=== PATIENT | female | born 1945 | race African-American/Black ===

== ENCOUNTER 2017-11-27 05:28 | Day surgery (SDC) | payer OTHER ==
[~2017-11-27] VITALS: Ht 155 cm; Wt 69.0 kg
--- NOTE | ~2017-11-27 | EKG ---
[address] [address] ELECTROCARDIOGRAM REPORT Name: XAVIER NEWTON Room #: 150-2 [facility].#: [id number] Admission: 11/27/17 Attend Phys: Rajesh Jett Discharge: Date of : 43 Report #: [id number] THIS REPORT FOR: //name// [facility] Test Date: 2017-11-27 Test Time: 08:16:09 Pat Name: XAVIER NEWTON Department: Room: 150 2 Gender: F Residential Glazier: FRANK : 1945 Requested By: Rajesh Espana Order Number: [id number] MD: Owen Wasserman Measurements Intervals [place] Rate: 95 P: 85 NH: 125 QRS: 43 QRSD: 89 T: QT: 413 QTc: 520 Interpretive Statements Sinus rhythm Abnrm T, consider ischemia, anterolateral lds Prolonged QT interval No previous ECG available for comparison Electronically Signed On 11-27-2017 8:30:14 CDT by Owen Wasserman [email or web address] <ELECTRONICALLY SIGNED> By: Owen Wasserman MD 11/27/1730 5 5 Owen Wasserman MD /CHRISTIE
[~2017-11-27 05:28] MED LIST: ALPHAGAN P5 ML OPHTHALMIC; ARTIFICIAL TEA1 EACH OPHTHALMIC; CLINIMIX 5%-12000 ML IV; METOPROLOL5 MG/5 M2 IV PUSH; MSL20MG/ML IV; MULTIVITAMINS1 EAC7 IV; NOVOLOG100 UNIT/1 SUBQ; PROTONIX40 M1 IV; REMEDY CALAZIM113 G2 TOP; SMOFLIPID 20%100 ML IV; SSD CREAM 1% 5050 GM TOP; VOLTAREN GEL 1100 G2 TOP
[2017-11-27 08:45] VITALS: BP 147/69
== END 2017-11-27 12:45 ==
LOC: TBA 05:28 → OR 05:28
DX: E46 Unspecified protein-calorie malnutrition (principal); R13.19 Other dysphagia; I10 Essential (primary) hypertension; J43.9 Emphysema, unspecified; I48.91 Unspecified atrial fibrillation; K21.9 Gastro-esophageal reflux disease without esophagitis; Z93.0 Tracheostomy status; Z79.899 Other long term (current) drug therapy; Z88.8 Allergy status to other drugs, medicaments and biological substances; Z87.891 Personal history of nicotine dependence; Z85.118 Personal history of other malignant neoplasm of bronchus and lung; Z87.19 Personal history of other diseases of the digestive system; Z98.0 Intestinal bypass and anastomosis status; Z98.41 Cataract extraction status, right eye; Z98.42 Cataract extraction status, left eye; Z98.51 Tubal ligation status; Z98.890 Other specified postprocedural states; Z87.01 Personal history of pneumonia (recurrent)
CPT/HCPCS: 50010; 50101; 62110; 62900; 70005

== ENCOUNTER 2018-02-04 20:01 | Inpatient (IN) | payer OTHER ==
[~2018-02-04] VITALS: Ht 154.9 cm; Wt 62.2 kg
--- NOTE | ~2018-02-04 | P ---
[facility] [place] [place] [address] PROCEDURE REPORT Name: XAVIER NEWTON Room #: 237-P [facility] IN M.R.#: [id number] Admission: 02/04/18 Attend Phys: Maryanne Reyna Discharge: Date of : 43 Report #: [id number] THIS REPORT FOR: //name// CC: Maryanne Hidalgo DATE OF SERVICE: 02/05/2018 PROCEDURE PERFORMED: Upper endoscopy. HISTORY OF PRESENT ILLNESS: The patient is a 73-year-old female who has a tracheostomy and vent dependent, as well as PEG for nutritional support, was noted to be anemic with drop in hemoglobin and Hemoccult positive stool. The patient has been on Eliquis. She has now received 1 unit of packed red cells since hospitalization. Her hemoglobin today is 7.9. Unclear when her last colonoscopy was performed. Plan is for upper endoscopy today. DESCRIPTION OF PROCEDURE: The risks and benefits of the procedure were explained to the patient's daughter. Those risks including, but not limited to bleeding, perforation, and the risk of sedation. She understood these risks and gave informed consent. The procedure was performed in the intensive care unit. Sedation was given using conscious sedation with Versed and fentanyl. Next, using a standard Olympus upper endoscope, the scope was placed in the patient's mouth and advanced under direct vision through the esophagus, stomach, and into the second portion of the duodenum. The esophagus was normal throughout. The GE junction was normal. In the mid body of the stomach, the PEG tube bumper was noted to be in good position. I was able to view underneath the PEG tube bumper. There was some mild erythema, but no ulcer, no bleeding. The gastric fundus and mid body were otherwise normal. In the gastric antrum; however, there was a single submucosal mass of approximately 2 cm. This had an umbilicated top, consistent likely with a pancreatic rest, there was no obvious bleeding or stigmata of recent bleeding, although they can bleed from time to time. The pylorus was normal and patent. The duodenal bulb, first, and second portion were all normal. At this point, the scope was then withdrawn and the procedure terminated. The patient tolerated the procedure well. IMPRESSION: 1. PEG tube bumper noted to be in place with mild erythema, but no bleeding. 2. 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 3. Otherwise normal upper endoscopy, no evidence of bleeding. RECOMMENDATIONS: Etiology of recent Hemoccult positive stool is unclear at this point, could consider colonoscopy in the near future, off Eliquis. We will need to determine when her last colonoscopy was performed. [address] [address] PROCEDURE REPORT Name: XAVIER NEWTON Room #: 237-P [facility] IN M.R.#: [id number] Admission: 02/04/18 Attend Phys: Maryanne Reyna Discharge: Date of : 43 Report #: [id number] Continue to monitor hemoglobin at this time and continue to hold Eliquis. Thank you for allowing me to participate in her care. <ELECTRONICALLY SIGNED> By: Michele Rocha MD 02/08/18 1239 1625 0237 Michele Rocha MD /nt
--- NOTE | ~2018-02-04 | P ---
[facility] [place] [place] [address] PROCEDURE REPORT Name: XAVIER NEWTON Room #: 237-P [facility] IN M.R.#: [id number] Admission: 02/04/18 Attend Phys: Maryanne Reyna Discharge: Date of : 43 Report #: [id number] THIS REPORT FOR: //name// CC: Maryanne Hidalgo DATE OF SERVICE: 02/08/2018 PROCEDURE PERFORMED: Colonoscopy with polypectomy. HISTORY OF PRESENT ILLNESS: The patient is a 73-year-old female with a history of anemia and Hemoccult positive stool. I performed an upper endoscopy on the patient on 02/05/2018. The patient is a chronic vent-dependent with tracheostomy as well as PEG tube. She had been on Eliquis. She did receive 1 unit of packed cells during the hospitalization. EGD showed the PEG tube bumper noted to be in place with mild erythema but no bleeding, likely pancreatic rest in the gastric antrum, otherwise normal. No evidence of bleeding. Plan is for colonoscopy today. DESCRIPTION OF PROCEDURE: The risks and benefits of the procedure were explained to the patient's family and those risks including but not limited to bleeding, perforation, the risk of sedation and they understood these risks and gave informed consent. The procedure was performed in the ICU under conscious sedation. Again, the patient is on a ventilator at this time. Fentanyl and Versed were given. Next, a digital rectal exam was initially performed, which was normal. Next, using a standard Olympus colonoscope, the scope was placed in the patient's anus and advanced under direct vision to the right colon, at which point a surgical anastomosis was noted. Of note, the patient also has a history of C. diff in several areas of pseudomembranous colitis were seen throughout the colon today. There was a polyp in the proximal transverse colon just distal to the anastomosis. This was approximately 8 mm in size and removed by snare cautery. Otherwise, other than the membranes noted in the descending and sigmoid colon, no other abnormalities were seen. Rectal mucosa was normal. Retroflexion, no internal hemorrhoids were seen. There was no evidence of bleeding throughout the exam today. The scope was then withdrawn and the procedure terminated. The patient tolerated the procedure well. IMPRESSION: 1. Pseudomembranous colitis consistent with the patient's history of Clostridium difficile. 2. Polyp removed in the transverse colon. 3. Surgical anastomosis noted in the right colon. RECOMMENDATIONS: 1. Await biopsy results. [address] [address] PROCEDURE REPORT Name: XAVIER NEWTON Room #: 237-P [facility] IN M.R.#: [id number] Admission: 02/04/18 Attend Phys: Maryanne Reyna Discharge: Date of : 43 Report #: [id number] 2. Pseudomembranous colitis could cause Hemoccult positive stools. There is no evidence of bleeding at this time either on EGD or colonoscopy. We will continue to monitor hemoglobin closely. Thank you for allowing me to participate in her care. <ELECTRONICALLY SIGNED> By: Michele Rocha MD 02/13/18 0845 1843 0523 Michele Rocha MD /nt
--- NOTE | ~2018-02-04 | HC ---
[facility] [place] [place] [address] CONSULTATION Name: XAVIER NEWTON Room #: 237-P ADM IN M.R.#: [id number] Admission: 02/04/18 Attend Phys: Maryanne Reyna Discharge: Date of : 43 Report #: [id number] THIS REPORT FOR: //name// CC: Maryanne Hidalgo DATE OF SERVICE: 02/12/2018 ATTENDING PHYSICIAN: Dr. Reyna. REASON FOR CONSULTATION: Elevated creatinine. HISTORY OF PRESENT ILLNESS: A 73-year-old patient with COPD and pneumonia has become a chronic ventilator. The patient has been on the ventilator for the last 5 months. She has a tracheostomy and PEG tube. She was transferred from a group home facility to this hospital for anemia and also was found to have worsening diarrhea. While hospitalized here, her creatinine raises from 0.6-2.2. She has had quite a bit of diarrhea and she has been attempted on weaning trials. PAST MEDICAL HISTORY: She has previous history of pulmonary embolus and atrial fibrillation as well as the COPD, previous history of pneumonia. She has also had previous history of lung cancer. I am unclear as to treatment for that and a previous hemicolectomy. It is unclear as to what the etiology of her illness that led to the hemicolectomy. CURRENT MEDICATIONS: Include albuterol and Pulmicort inhalers, Niferex, Ativan, metoprolol tartrate 75 mg b.i.d., p.r.n. morphine, p.r.n. Zofran, Protonix 40 mg b.i.d., Zosyn, prednisone 20 mg daily, theophylline 400 mg daily, vancomycin per PEG tube. SOCIAL HISTORY: Please see old charts. REVIEW OF SYSTEMS: Cannot be taken due to the patient being on the ventilator with tracheostomy. PHYSICAL EXAMINATION: GENERAL: This is a cushingoid appearing patient, tracheostomy in place, probably on assist control having failed a CPAP trial earlier today. SKIN: Unremarkable. SKELETAL: Well developed, well nourished. HEENT: Extraocular movements are full. Vision appears to be intact. No scleral icterus. Hearing appears to be intact. Tracheostomy in place. NECK: Supple. CHEST: Shows coarse breath sounds. [facility] [address] [place] [address] CONSULTATION Name: XAVIER NEWTON Room #: 237- ADM IN M.R.#: [id number] Admission: 02/04/18 Attend Phys: Maryanne Reyna Discharge: Date of : 43 Report #: [id number] HEART: Irregular. ABDOMEN: Soft and nontender. EXTREMITIES: Show no edema. NEUROLOGIC: Moving all extremities. LABORATORY DATA: Urinalysis was benign except for some leukocytes at the time of admission, hemoglobin is 8.8, white count 18.6, platelets 541. Sodium 144, potassium 3.5, chloride 107, bicarbonate 31, creatinine 2.2, BUN 25, calcium 10.0, albumin only 2.0. ASSESSMENT AND PLAN: 1. Elevated creatinine. Creatinine is elevated. She does appear to be a little hypercalcemic correcting her calcium for her albumin. This could certainly be playing a role. Volume depletion also could be playing a role here given her rather copious Clostridium difficile diarrhea, which is being treated. I will administer IV fluids at this time and check a urinalysis and urinary electrolytes. I suspect this is multifactorial and I suspect that we will see some improvement. A renal sonogram will be of interest as well. We will order that. 2. Chronic ventilatory failure, on chronic ventilator. 3. Clostridium difficile diarrhea. 4. History of lung cancer. 5. History of hemicolectomy. 6. History of atrial fibrillation. By: 1111 55 Fuentes Smith MD /nt
--- NOTE | ~2018-02-04 | HC ---
[facility] [place] [place] [address] CONSULTATION Name: XAVIER NEWTON Room #: 237-P ADM IN M.R.#: [id number] Admission: 02/04/18 Attend Phys: Maryanne Reyna Discharge: Date of : 43 Report #: [id number] THIS REPORT FOR: //name// CC: Maryanne Hidalgo DATE OF SERVICE: 02/04/2018 TYPE OF REPORT: Pulmonary consultation. REFERRING PROVIDER: Maryanne Reyna M.D. REASON FOR CONSULTATION: Respiratory failure. HISTORY OF PRESENT ILLNESS: Our group was asked to see this patient in consultation while hospitalized at [facility]. Called earlier this morning due to a low return tidal volumes due to apparent leak around the tracheostomy cuff. The patient was able to voice. Apparently last night, tracheostomy was changed by the Emergency Department physician. Apparently, there is an air leak that was somewhat positional. The patient appears comfortable at this time, awake, following commands, in no distress. In fact on CPAP mode, follows reasonable tidal volumes, able to cough. The patient does not appear in any distress at this time. The patient was transferred over due to an anemia with unclear source of blood loss. The patient has a PEG tube, but I do not see a gastric tube lavage at all and I did see a rectal exam performed, however. The patient has not had any active bleeding apparent overnight. ALLERGIES: LISINOPRIL. PAST MEDICAL HISTORY: 1. Chronic respiratory failure likely due to postoperative pneumonia as best I can tell, minimal records available, currently on ventilator support. 2. History of tracheostomy. 3. Status post hemicolectomy with ileocecal anastomosis. 4. History of lung cancer, status post XRT, details unavailable. 5. Prior history of DVT, in the upper extremity. 6. COPD, severity not quantified. OUTPATIENT MEDICATIONS: Include brimonidine eyedrops, multivitamin, insulin, metoprolol, Protonix, Voltaren gel, morphine and aerosol treatments. SOCIAL HISTORY: Unobtainable at present due to the patient's nonverbal status. Apparently a former smoker. FAMILY HISTORY: Unobtainable. [facility] [address] [place] [address] CONSULTATION Name: XAVIER NEWTON Room #: 237-P [facility] IN M.R.#: [id number] Admission: 02/04/18 Attend Phys: Maryanne Reyna Discharge: Date of : 43 Report #: [id number] REVIEW OF SYSTEMS: As best I can tell, the patient states she has been working with physical therapy at [facility] and when attempting to sit and move, but no apparent ventilator weans that I can tell. PHYSICAL EXAMINATION: VITAL SIGNS: Afebrile, pulse 100 and regular, respiratory rate 20 and blood pressure 138/50. GENERAL: This is an elderly black woman, awake, alert and in no distress, on the ventilator. ENT: Reveals a size #[address] No surrounding erythema. LUNGS: Slightly coarse, but clear with suctioning. CARDIOVASCULAR: Heart was regular. No murmurs noted. ABDOMEN: Soft and nontender. No masses. Well-healed midline scar. PEG tube in place. Bowel sounds diminished. EXTREMITIES: Warm with 2+ pulses. There is no edema. NEUROLOGICAL: The patient is weak with about 4+/5 strength bilaterally but did not fully assessed due to ongoing issues. LABORATORY DATA: Chemistry profile normal except for an elevated CO2 of 39. Arterial blood gas was 7.36, pCO2 of 70, pO2 of 82 and bicarbonate of 38. This was on a tidal volume of 400, PEEP of 5, FiO2 50% and rate of 12. White blood cell count 19,000; hemoglobin 7; hematocrit 24 and platelet count 631. RADIOLOGICAL DATA: Chest x-ray revealed some left basilar fibrosis or atelectasis and no other imaging available, tracheostomy tube appeared to be in place but the tip of the tube appeared to be in the proximal trachea. IMPRESSION: 1. Chronic respiratory failure. 2. Anemia of unclear etiology, would be suspicious for a slow blood loss. 3. Prior history of left upper extremity deep venous thrombosis, may be prudent to check ultrasounds. 4. Chronic obstructive pulmonary disease, severity unquantified. 5. Chronic debilitation. SUGGESTIONS: 1. Physical and occupational therapy. 2. GI consultation. 3. Would do a PEG tube, flush for GI for gastric lavage to look for evidence of active bleeding. 4. Bronchodilators. 5. Attempt ventilator wean if no procedures performed or after procedure was complete, may benefit from LTAC side of [facility] if transferred out before ventilator wean could be fully assessed. 6. Additional recommendation to follow. [facility] [address] [place] [address] CONSULTATION Name: XAVIER NEWTON Room #: 237-P ADM IN M.R.#: [id number] Admission: 02/04/18 Attend Phys: Maryanne Reyna Discharge: Date of : 43 Report #: [id number] Total critical care time was 35 minutes, not including procedures. Discussed with nursing. <ELECTRONICALLY SIGNED> By: Keagan Adair MD 02/13/18 1200 0834 1013 Keagan Adair MD /nt
--- NOTE | ~2018-02-04 | PATH ---
[facility] [address] [place] [address] PATHOLOGY RPT PROCEDURE Name: SALLY PRADO Room #: 237-P ADM IN M.R.#: [id number] Admission: 02/04/18 Date of : 43 Discharge: Report #: [id number] Path Case #: [id number] [facility] Accession Number: [id number] . 01 Material submitted: . POLYP AT TRANSVERSE COLON . 01 Clinical history: . Pre-Op DX: Anemia, heme + stool Post-Op DX: Colon polyp . 02 Diagnosis: Polyp, at transverse colon, endoscopic biopsy: - Tubular adenoma. - Negative for high grade dysplasia. . (IUV:mml; 02/11/18) [facility]/02/11/2018 . 02 Comment: . . . 02 Electronically signed: . Indiana Leija MD, Pathologist NPI- [id number] . 01 Gross description: . Received in formalin labeled "Sally Prado, polyp at transverse colon," are 3 segments of sanchez soft tissue measuring 0.7 x 0.8 x 0.3 cm in aggregate dimensions and ranging from 0.3 to 0.5 cm in maximum dimension. The specimen is submitted entirely in cassette A1. (TSD; 02/08/2018) TOB/TOB . 02 Pathologist provided ICD-10: D12.3 . 02 CPT . 166661 Performed at: [address], [place] [id number] MD Slade Fitch MD Phone: [phone] Performed at: [address] [id number] [address] [address] PATHOLOGY RPT PROCEDURE Name: SALLY PRADO Room #: 237-P [facility] IN M.R.#: [id number] Admission: 02/04/18 Date of : 43 Discharge: Report #: [id number] Path Case #: [id number] MD Indiana Leija MD Phone: [phone]
[2018-02-04 20:02] VITALS: BP 138/65
[2018-02-04 20:44] LABS: HEMATOCRIT 23.7 % (37.0-47.0); HEMOGLOBIN 7.3 gm/dL (12.0-15.0); MCH 23.2 pg (26.0-34.0); MCHC 30.7 g/dL (28.0-37.0); MCV 75.5 fL (80.0-100.0); PLATELET COUNT 631 thou/uL (150-400); RBC 3.14 mil/uL (4.20-5.00); RDW 20.7 % (10.5-14.5); WBC 18.7 thou/uL (4.0-11.0)
[2018-02-04 20:52] LABS: CALCIUM 9.5 mg/dL (8.5-10.1); CREATININE 0.6 mg/dL (0.6-1.0); POTASSIUM 3.7 mmol/L (3.5-5.1)
[2018-02-04 21:05] LABS: ABSOLUTE NEUTROPHILS 12.5 thou/uL (1.4-8.2); ANISOCYTOSIS 1+; HYPOCHROMASIA 1+
[2018-02-04 21:51] LABS: URINE BILIRUBIN NEGATIVE (Negative); URINE BLOOD 1+ (Negative); URINE CLARITY CLEAR; URINE COLOR YELLOW; URINE GLUCOSE-RANDOM* NEGATIVE (Negative); URINE KETONES NEGATIVE (Negative); URINE NITRITE-REFLEX NEGATIVE (Negative); URINE PROTEIN (DIPSTICK) NEGATIVE (Negative); URINE UROBILINOGEN 0.2 E.U./dl (0.2-1.0)
[2018-02-04 21:52] LABS: URINE LEUKOCYTES-REFLEX 3+ (Negative)
[2018-02-04 22:07] LABS: AMORPHOUS URATES Many /LPF (None Seen); BACTERIA-REFLEX None Seen /HPF (None Seen); CASTS None Seen /LPF (None Seen); SQUAMOUS 4-10 Moderate /LPF (0-3)
[2018-02-04 22:48] VITALS: BP 146/60
[2018-02-05] VITALS (27 sets, daily range): BP systolic 117–168; BP diastolic 45–74
[2018-02-05 01:06] LABS: BE(vivo) 11.6 mmol/L (-2 to +3); HCO3 38.4 mmol/L (22.0-26.0); PO2 82.1 mmHg (80.0-100.0); pH 7.358 (7.360-7.450); sO2 95.2 % (92.0-98.0)
[2018-02-05 01:07] LABS: PCO2 69.8 mmHg (35.0-45.0)
[2018-02-05 01:51] LABS: % SATURATION 4 % (20-39); IRON 9 ug/dL (50-170); TIBC 251 ug/dL (250-450)
[2018-02-05] MEDS ORDERED: PREVACID 15 MG15 M4 PER TUBE (03:49)
[2018-02-05] MEDS ORDERED: BRIMONIDINE TART5 ML OPHTHALMIC (03:51)
[2018-02-05] MEDS ORDERED: ELIQUIS5 MG PER TUBE (03:52)
[2018-02-05] MEDS ORDERED: LOPRESSOR50 MG PER TUBE (03:52)
[2018-02-05] MEDS ORDERED: SERTRALINE HCL50 MG PER TUBE (03:53)
[2018-02-05] MEDS ORDERED: VITAMINC500 PER TUBE (03:53)
[2018-02-05] MEDS ORDERED: IRON325 PER TUBE (03:54)
[2018-02-05] MEDS ORDERED: XANAX 0.25 MG0.25 MG PO (03:56)
[2018-02-05] MEDS ORDERED: REGLAN 10 MG TA10 MG PER TUBE (03:56)
[2018-02-05] MEDS ORDERED: BISCOLAX10 MG RECTAL (03:57)
[2018-02-05] MEDS ORDERED: VOLTAREN GEL 1100 G2 TOP (03:58)
[2018-02-05] MEDS ORDERED: LIQUITEARS15 ML OPHTHALMIC (03:59)
[2018-02-05] MEDS ORDERED: NORCO 5-325 TA1 EACH PO (03:59)
[2018-02-05] MEDS ORDERED: ROBITUSSIN100 MG/53 PO (04:00)
[2018-02-05] MEDS ORDERED: TYLENOL EXTRA500 MG PO (04:00)
[2018-02-05] MEDS ORDERED: MIRALAX17 GM PO (04:01)
[2018-02-05] MEDS ORDERED: RESTORIL15 MG PO (04:01)
[2018-02-05] MEDS ORDERED: SSD CREAM 1% 5050 GM TOP (04:02)
[2018-02-05 09:10] LABS: HEMATOCRIT 25.6 % (37.0-47.0); HEMOGLOBIN 7.9 gm/dL (12.0-15.0)
[2018-02-05 09:11] LABS: OBSERVED RETIC COUNT 1.12 % (0.6-2.6)
[2018-02-05 15:45] LABS: HCO3 35.2 mmol/L (22.0-26.0); PCO2 59.2 mmHg (35.0-45.0); PO2 72.7 mmHg (80.0-100.0); pH 7.392 (7.360-7.450); sO2 94.1 % (92.0-98.0)
[2018-02-05 17:32] LABS: HEMATOCRIT 27.2 % (37.0-47.0); HEMOGLOBIN 8.5 gm/dL (12.0-15.0)
[2018-02-06] VITALS (26 sets, daily range): BP systolic 121–156; BP diastolic 52–93
[2018-02-06 03:18] LABS: HEMATOCRIT 24.3 % (37.0-47.0); HEMOGLOBIN 7.9 gm/dL (12.0-15.0); MCH 25.1 pg (26.0-34.0); MCHC 32.3 g/dL (28.0-37.0); MCV 77.7 fL (80.0-100.0); RBC 3.13 mil/uL (4.20-5.00); RDW 20.4 % (10.5-14.5); WBC 18.6 thou/uL (4.0-11.0)
[2018-02-06 03:42] LABS: ALBUMIN 2.1 g/dL (3.4-5.0); ANION GAP 9 mmol/L (7-16); BUN 5 mg/dL (7-18); CALCIUM 9.2 mg/dL (8.5-10.1); CHLORIDE 104 mmol/L (98-107); CO2 32 mmol/L (21-32); CREATININE 0.6 mg/dL (0.6-1.0); GLUCOSE 111 mg/dL (74-106); MAGNESIUM 1.7 mg/dL (1.8-2.4); POTASSIUM 3.4 mmol/L (3.5-5.1); SGOT 10 U/L (15-37); SGPT 12 U/L (30-65); SODIUM 145 mmol/L (136-145); TOTAL BILIRUBIN 0.2 mg/dL (<0.1-1.0); TOTAL PROTEIN 6.6 g/dL (6.4-8.2); TROPONIN-I <0.06 ng/mL (<0.06)
[2018-02-06 10:45] LABS: BE(vivo) 4.2 mmol/L (-2 to +3); HCO3 30.8 mmol/L (22.0-26.0); PCO2 58.2 mmHg (35.0-45.0); PO2 92.9 mmHg (80.0-100.0); pH 7.341 (7.360-7.450); sO2 96.5 % (92.0-98.0)
[2018-02-06 17:51] LABS: MAGNESIUM 1.7 mg/dL (1.8-2.4); POTASSIUM 3.7 mmol/L (3.5-5.1)
[2018-02-07] VITALS (22 sets, daily range): BP systolic 118–158; BP diastolic 48–90
[2018-02-07 06:15] LABS: HEMATOCRIT 24.6 % (37.0-47.0); HEMOGLOBIN 7.7 gm/dL (12.0-15.0); MCH 24.5 pg (26.0-34.0); MCHC 31.1 g/dL (28.0-37.0); MCV 78.5 fL (80.0-100.0); RBC 3.14 mil/uL (4.20-5.00); RDW 21.2 % (10.5-14.5); WBC 20.9 thou/uL (4.0-11.0)
[2018-02-07 15:38] LABS: BE(vivo) 3.7 mmol/L (-2 to +3); HCO3 33.2 mmol/L (22.0-26.0); PO2 79.5 mmHg (80.0-100.0); sO2 92.3 % (92.0-98.0)
[2018-02-07 15:39] LABS: PCO2 85.8 mmHg (35.0-45.0); pH 7.205 (7.360-7.450)
[2018-02-08] VITALS (30 sets, daily range): BP systolic 92–152; BP diastolic 41–92
[2018-02-08 06:15] LABS: HEMATOCRIT 23.1 % (37.0-47.0); HEMOGLOBIN 7.3 gm/dL (12.0-15.0); MCH 24.6 pg (26.0-34.0); MCHC 31.4 g/dL (28.0-37.0); MCV 78.5 fL (80.0-100.0); RBC 2.94 mil/uL (4.20-5.00); RDW 21.8 % (10.5-14.5); WBC 15.1 thou/uL (4.0-11.0)
[2018-02-08 06:39] LABS: PHOSPHORUS 4.1 mg/dL (2.5-4.9)
[2018-02-08 06:41] LABS: CREATININE 1.9 mg/dL (0.6-1.0)
[2018-02-08 06:43] LABS: POTASSIUM 2.9 mmol/L (3.5-5.1)
[2018-02-09] VITALS (19 sets, daily range): BP systolic 112–151; BP diastolic 39–114
[2018-02-09 08:41] LABS: HEMATOCRIT 25.9 % (37.0-47.0); HEMOGLOBIN 7.9 gm/dL (12.0-15.0)
[2018-02-09 13:35] LABS: BE(vivo) 2.6 mmol/L (-2 to +3); HCO3 29.8 mmol/L (22.0-26.0); PCO2 60.7 mmHg (35.0-45.0); PO2 98.4 mmHg (80.0-100.0); pH 7.309 (7.360-7.450); sO2 96.7 % (92.0-98.0)
[2018-02-10] VITALS (22 sets, daily range): BP systolic 108–147; BP diastolic 52–75
[2018-02-10 03:42] LABS: HEMATOCRIT 23.9 % (37.0-47.0); HEMOGLOBIN 7.3 gm/dL (12.0-15.0); MCHC 30.7 g/dL (28.0-37.0); MCV 78.1 fL (80.0-100.0); RBC 3.06 mil/uL (4.20-5.00); RDW 22.5 % (10.5-14.5); WBC 16.4 thou/uL (4.0-11.0)
[2018-02-11] VITALS (22 sets, daily range): BP systolic 123–168; BP diastolic 54–78
[2018-02-11] MEDS ORDERED: PREDNISONE 20 M20 M1 PER TUBE (11:00)
[2018-02-11] MEDS ORDERED: LOPRESSOR25 PER TUBE (11:00)
[2018-02-11] MEDS ORDERED: FIRVANQ50 MG/1 ML PO (11:00)
[2018-02-11] MEDS ORDERED: ZOSYN 3.373.375 GM/1 IV (11:00)
[2018-02-12] VITALS (23 sets, daily range): BP systolic 117–165; BP diastolic 51–95
[2018-02-12 09:48] LABS: HEMATOCRIT 28.9 % (37.0-47.0); HEMOGLOBIN 8.8 gm/dL (12.0-15.0); MCH 24.3 pg (26.0-34.0); MCHC 30.3 g/dL (28.0-37.0); RBC 3.62 mil/uL (4.20-5.00); RDW 22.9 % (10.5-14.5); WBC 18.6 thou/uL (4.0-11.0)
[2018-02-12 10:00] LABS: CREATININE 2.2 mg/dL (0.6-1.0); POTASSIUM 3.5 mmol/L (3.5-5.1)
[2018-02-12 11:09] LABS: BE(vivo) 4.6 mmol/L (-2 to +3); HCO3 33.6 mmol/L (22.0-26.0); sO2 90.4 % (92.0-98.0)
[2018-02-12 11:11] LABS: PCO2 79.7 mmHg (35.0-45.0); pH 7.243 (7.360-7.450)
[2018-02-12 11:13] LABS: PO2 70.5 mmHg (80.0-100.0)
[2018-02-12 14:14] LABS: URINE BILIRUBIN NEGATIVE (Negative); URINE BLOOD NEGATIVE (Negative); URINE CLARITY CLEAR; URINE COLOR YELLOW; URINE GLUCOSE-RANDOM* NEGATIVE (Negative); URINE KETONES NEGATIVE (Negative); URINE LEUKOCYTES NEGATIVE (Negative); URINE NITRITE NEGATIVE (Negative); URINE PROTEIN (DIPSTICK) NEGATIVE (Negative); URINE UROBILINOGEN 0.2 E.U./dl (0.2-1.0)
[2018-02-13] VITALS (22 sets, daily range): BP systolic 94–152; BP diastolic 50–80
[2018-02-13 04:55] LABS: ALBUMIN 2.1 g/dL (3.4-5.0); CALCIUM 9.3 mg/dL (8.5-10.1); PHOSPHORUS 2.2 mg/dL (2.5-4.9); POTASSIUM 3.2 mmol/L (3.5-5.1)
[2018-02-13 13:10] LABS: BE(vivo) 1.4 mmol/L (-2 to +3); HCO3 28.8 mmol/L (22.0-26.0); PCO2 62.2 mmHg (35.0-45.0); PO2 73.2 mmHg (80.0-100.0); pH 7.283 (7.360-7.450); sO2 92.5 % (92.0-98.0)
[2018-02-14] VITALS (24 sets, daily range): BP systolic 129–164; BP diastolic 51–70
[2018-02-14 05:08] LABS: BE(vivo) 3.4 mmol/L (-2 to +3); HCO3 30.4 mmol/L (22.0-26.0); PCO2 61.8 mmHg (35.0-45.0); PO2 79.5 mmHg (80.0-100.0); sO2 94.4 % (92.0-98.0)
[2018-02-14 05:48] LABS: CALCIUM 8.9 mg/dL (8.5-10.1); CREATININE 1.9 mg/dL (0.6-1.0); PHOSPHORUS 1.8 mg/dL (2.5-4.9); POTASSIUM 3.3 mmol/L (3.5-5.1)
[2018-02-15] VITALS (22 sets, daily range): BP systolic 129–170; BP diastolic 57–79
[2018-02-15 06:50] LABS: ALBUMIN 2.1 g/dL (3.4-5.0); CALCIUM 8.9 mg/dL (8.5-10.1); CREATININE 1.9 mg/dL (0.6-1.0); PHOSPHORUS 2.6 mg/dL (2.5-4.9); POTASSIUM 3.7 mmol/L (3.5-5.1)
[2018-02-15 07:58] LABS: MCH 24.8 pg (26.0-34.0); MCHC 30.9 g/dL (28.0-37.0); MCV 80.2 fL (80.0-100.0); RBC 3.24 mil/uL (4.20-5.00); RDW 23.9 % (10.5-14.5); WBC 15.2 thou/uL (4.0-11.0)
[2018-02-16] VITALS (17 sets, daily range): BP systolic 151–175; BP diastolic 55–93
[2018-02-16 06:33] LABS: ALBUMIN 2.2 g/dL (3.4-5.0); CALCIUM 9.1 mg/dL (8.5-10.1); PHOSPHORUS 3.1 mg/dL (2.5-4.9); POTASSIUM 3.6 mmol/L (3.5-5.1)
[2018-02-17 03:10] VITALS: BP 177/73
[2018-02-17 07:53] VITALS: BP 180/71
[2018-02-17 09:09] LABS: ALBUMIN 2.2 g/dL (3.4-5.0); CREATININE 1.9 mg/dL (0.6-1.0); PHOSPHORUS 2.5 mg/dL (2.5-4.9); POTASSIUM 3.7 mmol/L (3.5-5.1)
[2018-02-17 11:45] VITALS: BP 163/71
[2018-02-17 16:10] VITALS: BP 160/61
[2018-02-17 20:06] VITALS: BP 158/65
[2018-02-18 05:33] VITALS: BP 155/69
[2018-02-18 05:51] LABS: HEMATOCRIT 24.5 % (37.0-47.0); HEMOGLOBIN 7.5 gm/dL (12.0-15.0); MCH 24.8 pg (26.0-34.0); MCHC 30.7 g/dL (28.0-37.0); MCV 80.6 fL (80.0-100.0); RBC 3.04 mil/uL (4.20-5.00); RDW 26.4 % (10.5-14.5); WBC 12.8 thou/uL (4.0-11.0)
[2018-02-18 06:04] LABS: ALBUMIN 2.1 g/dL (3.4-5.0); CALCIUM 8.6 mg/dL (8.5-10.1); PHOSPHORUS 2.2 mg/dL (2.5-4.9); POTASSIUM 3.3 mmol/L (3.5-5.1)
[2018-02-18 06:45] LABS: BE(vivo) 4.4 mmol/L (-2 to +3); HCO3 29.7 mmol/L (22.0-26.0); PO2 75.7 mmHg (80.0-100.0); pH 7.401 (7.360-7.450)
[2018-02-18 07:56] VITALS: BP 148/65
[2018-02-18 12:19] VITALS: BP 179/84
[2018-02-18 15:02] VITALS: BP 162/76
[2018-02-18 22:08] VITALS: BP 159/78
[2018-02-19 05:14] VITALS: BP 148/60
[2018-02-19 06:10] LABS: CALCIUM 8.7 mg/dL (8.5-10.1); CREATININE 1.9 mg/dL (0.6-1.0); PHOSPHORUS 2.4 mg/dL (2.5-4.9)
[2018-02-19 07:52] VITALS: BP 167/66
[2018-02-19 11:15] VITALS: BP 144/74
[2018-02-19 15:19] VITALS: BP 172/82
[2018-02-19 19:30] VITALS: BP 179/80
[2018-02-20 03:40] VITALS: BP 159/65
[2018-02-20 07:34] LABS: ALBUMIN 2.4 g/dL (3.4-5.0); CALCIUM 9.3 mg/dL (8.5-10.1); PHOSPHORUS 2.2 mg/dL (2.5-4.9); POTASSIUM 3.3 mmol/L (3.5-5.1)
[2018-02-20 08:11] VITALS: BP 159/69
[2018-02-20 13:02] VITALS: BP 145/72
[2018-02-20 17:25] VITALS: BP 177/83
[2018-02-20 19:15] VITALS: BP 173/86
[2018-02-21 04:05] VITALS: BP 167/71
[2018-02-21 08:26] VITALS: BP 171/75
[2018-02-21 09:12] LABS: ALBUMIN 2.4 g/dL (3.4-5.0); CALCIUM 9.2 mg/dL (8.5-10.1); CREATININE 1.9 mg/dL (0.6-1.0); PHOSPHORUS 2.3 mg/dL (2.5-4.9)
[2018-02-21] MEDS ORDERED: LOPRESSOR100 M1 PO (10:24)
[2018-02-21] MEDS ORDERED: VOLTAREN GEL 1100 G1 TOP (10:24)
[2018-02-21] MEDS ORDERED: CATAPRES-TTS 20.2 MG TRANSDERM (10:24)
[2018-02-21 11:19] VITALS: BP 173/84
== END 2018-02-21 15:17 | DRG 870 ==
LOC: ER 20:01 → EROBS 21:48 → 3W 21:48 → ICU 21:48 → 3W 23:24 → ICU 02-05 01:55 → 3W 02-16 17:52
PROVIDERS: Hospitalist; Internal Medicine Nephrology; Internal Medicine Pulmonary Disease; Nurse Practitioner Acute Care; Physician Assistant
PROC: 0B21XFZ Change Tracheostomy Device in Trachea, External Approach (ICD-10-PCS; principal; 2018-02-04)
PROC: 5A1945Z Respiratory Ventilation, 24-96 Consecutive Hours (ICD-10-PCS; principal; 2018-02-04)
PROC: 0DJ08ZZ Inspection of Upper Intestinal Tract, Via Natural or Artificial Opening Endoscopic (ICD-10-PCS; 2018-02-05)
PROC: 30233N1 Transfusion of Nonautologous Red Blood Cells into Peripheral Vein, Percutaneous Approach (ICD-10-PCS; 2018-02-05)
PROC: 5A1955Z Respiratory Ventilation, Greater than 96 Consecutive Hours (ICD-10-PCS; 2018-02-07)
PROC: 0DBL8ZZ Excision of Transverse Colon, Via Natural or Artificial Opening Endoscopic (ICD-10-PCS; 2018-02-08)
DX: A41.9 Sepsis, unspecified organism (principal); J18.9 Pneumonia, unspecified organism; J96.21 Acute and chronic respiratory failure with hypoxia; K92.2 Gastrointestinal hemorrhage, unspecified; N39.0 Urinary tract infection, site not specified; A04.72 Enterocolitis due to Clostridium difficile, not specified as recurrent; Z99.11 Dependence on respirator [ventilator] status; E87.4 Mixed disorder of acid-base balance; N17.9 Acute kidney failure, unspecified; E87.0 Hyperosmolality and hypernatremia; D62 Acute posthemorrhagic anemia; E46 Unspecified protein-calorie malnutrition; K21.9 Gastro-esophageal reflux disease without esophagitis; I48.0 Paroxysmal atrial fibrillation; E87.6 Hypokalemia; E83.39 Other disorders of phosphorus metabolism; I10 Essential (primary) hypertension; N18.9 Chronic kidney disease, unspecified; Z68.25 Body mass index [BMI] 25.0-25.9, adult; K59.00 Constipation, unspecified; I48.2 Chronic atrial fibrillation; B37.3 Candidiasis of vulva and vagina; D12.3 Benign neoplasm of transverse colon; J44.9 Chronic obstructive pulmonary disease, unspecified; Z87.891 Personal history of nicotine dependence; Z93.0 Tracheostomy status; Z93.1 Gastrostomy status; Z85.118 Personal history of other malignant neoplasm of bronchus and lung; Z86.718 Personal history of other venous thrombosis and embolism; Z86.711 Personal history of pulmonary embolism; Z92.3 Personal history of irradiation; Z98.42 Cataract extraction status, left eye; Z98.41 Cataract extraction status, right eye; Z79.01 Long term (current) use of anticoagulants; Z79.4 Long term (current) use of insulin; Z79.899 Other long term (current) drug therapy; Z88.8 Allergy status to other drugs, medicaments and biological substances
CPT/HCPCS: 10078; 10779; 10879; 85010